=== PATIENT | female | born 1980 | race Hispanic/Latino ===

== ENCOUNTER 2019-03-20 10:36 | Outpatient (CLI) | payer OTHER ==
--- NOTE | 2019-03-20 11:36 | ULT ---
US Abdominal History: Abdominal pain Comparison: None. Findings: Real-time grayscale and color evaluation of the abdomen was performed. Visualized portion of the aorta, IVC, and pancreas are unremarkable. Diffuse increased hepatic echote xture without mass. Common bile duct measures 5 mm, normal. Prior cholecystectomy. Portal vein not well interrogated. Liver measures 15.5 cm in length. Right kidney measures 10.5 x 5.6 x 4.2 cm and the left kidney measures 10.5 x 5 x 4.3 cm. No renal ma ss, hydronephrosis, or abnormal calcifications. Spleen measures 10.1 cm in length. Impression: 1. Prior cholecystectomy. 2. Diffuse increased hepatic echotexture suggesting steatosis.
== END 2019-03-20 10:37 | disposition home or self-care (01) ==
LOC: BICULT 10:36
PROVIDERS: ATTEND Nurse Practitioner Family
DX: R10.9 Unspecified abdominal pain (principal); K76.9 Liver disease, unspecified; Z90.49 Acquired absence of other specified parts of digestive tract
CPT/HCPCS: 76700